=== PATIENT | female | born 2000 | race Two or more races ===

== ENCOUNTER 2024-04-20 03:27 | Emergency (ER) | payer OTHER ==
[~2024-04-20] VITALS: Ht 167.6 cm; Wt 65.8 kg
[2024-04-20] MEDS ORDERED: KETOROLAC TROMETHAMINE 60 MG VIAL IM STA (07:14)
[2024-04-20] MEDS ORDERED: CEFTRIAXONE SODIUM 1,000 MG VIAL IM STA (07:14)
[2024-04-20] MEDS ORDERED: ORASEP SPRAY30 ML MM (07:21)
[2024-04-20] MEDS ORDERED: CEPHALEXIN500 MG PO (07:21)
== END 2024-04-20 07:51 ==
LOC: ER 03:29
DX: J03.80 Acute tonsillitis due to other specified organisms (principal)